=== PATIENT | male | born 1960 | race Caucasian/White ===

== ENCOUNTER 2017-01-11 07:20 | Emergency (ER) | payer MEDICARE ==
[2017-01-11] MEDS ORDERED: Famotidine 20 MG/2 ML SDV IVPUSH ONE (07:35)
[2017-01-11] MEDS ORDERED: Ticagrelor 90 MG Tab PO ONE (07:35)
[2017-01-11] MEDS ORDERED: Aspirin 81 MG Tab.Chew CHEW ONE (07:35)
[2017-01-11] MEDS ORDERED: Sodium Chloride 0.9% 10 ML Syringe FLUSH PRN (07:35)
[2017-01-11] MEDS ORDERED: Metoprolol Tartrate 5 MG/5 ML SDV IVPUSH ONE (07:35)
--- NOTE | 2017-01-11 07:35 | EDM.PDOC ---
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 Insertion Adult [OM.PC] Stat Resuscitation Status Stat 01/11/17 Breakfast Nothing per Oral Now Diet [DIET] - Assessment/Plan Last 24 Hours: My Active Orders 01/11/17 07:35 Cardiac Monitoring [RC] . DIRECTED EKG Documentation Completion [RC] ASDIRECTED Oxygen Therapy, ED [RC] CONTINUOUS Peripheral IV Care [RC] . DIRECTED Pulse Oximetry [RC] CONTINUOUS Up With Assistance [RC] PFP Vital Signs [RC] PFP Chest 1V Frontal [CR] Stat Sodium Chloride 0.9% [Saline Flush] 10 ml FLUSH ASDIRECTED PRN Obtain Past Medical Record [OM.PC] Urgent Peripheral IV Insertion Adult [OM.PC] Stat Resuscitation Status Stat 01/11/17 Breakfast Nothing per Oral Now Diet [DIET] Assessment:: As above Plan: As above. Extensive precautions were given to the patient, who is in agreement with the treatment plan. See Patient Instructions for further treatment and plan.
[2017-01-11 08:19] LABS: CHLORIDE,CL 101 mmol/L (98-107); SODIUM,NA 134 mmol/L (136-145)
[2017-01-11 09:22] VITALS: BP 121/80
== END 2017-01-11 09:50 | disposition home or self-care (01) ==
LOC: LL.ED 07:20
DX: F41.8 Other specified anxiety disorders (principal); J43.1 Panlobular emphysema; R07.89 Other chest pain; E87.1 Hypo-osmolality and hyponatremia; M15.0 Primary generalized (osteo)arthritis; F17.210 Nicotine dependence, cigarettes, uncomplicated; Z71.6 Tobacco abuse counseling; Z88.0 Allergy status to penicillin; Z79.899 Other long term (current) drug therapy
CPT/HCPCS: 36415; 71010; 80053; 82550; 82553; 83605; 83735; 83880; 84443; 84484; 84550; 85025; 85379; 85610; 85730; 93005; 93010; 96374; 96375; 99283; 99285; A9270; G0480; J3360; J3490; S0028